=== PATIENT | female | born 1960 | race Caucasian/White ===

== ENCOUNTER → 2024-05-16 13:12 | Outpatient (CLI) | payer MEDICARE, OTHER, SELFPAY ==
--- NOTE | 2024-05-16 13:18 | DI.MG.S_ITS ---
BILATERAL DIGITAL SCREENING MAMMOGRAM 3D/2D WITH CAD: 05/16/2024 CLINICAL: Baseline exam. Routine screening. No prior exams were available for comparison. Both breasts are heterogeneously dense, which may obscure small masses (category c / 51-75% glandular tissue). Current study was also evaluated with a Computer Aided Detection (CAD) system. There is a lymph node in the right breast posterior depth superior region seen on the mediolateral oblique view only. There is a lymph node in the left breast posterior depth superior region seen on the mediolateral oblique view only. No other significant masses or calcifications are seen in either breast. IMPRESSION: INCOMPLETE: NEEDS ADDITIONAL IMAGING EVALUATION The lymph node in the right breast posterior depth superior region seen on the mediolateral oblique view only is indeterminate. An ultrasound is recommended. The lymph node in the left breast posterior depth superior region seen on the mediolateral oblique view only is indeterminate. An ultrasound is recommended. These appear borderline enlarged on mammogram. Based on the Tyrer Cuzick model (a risk assessment model) the patient's lifetime risk is 4.9% and her 10 year risk is 2.4%. According to the ACR, ACS, and NCCN guidelines, an annual breast MRI exam along with mammogram is recommended if the patient's lifetime risk is 20% or greater. This exam was interpreted at Station ID: [id number]. NOTE: For mammograms, a report in lay terms will be sent to the patient. Approximately 15% of breast malignancies will not be visualized mammographically. In the management of a palpable breast mass, a negative mammogram must not discourage biopsy of a clinically suspicious lesion. Electronically Signed By: Marvin Hunt M.D. lc/:05/16/2024 15:05:19 letter sent: Additional Imaging Needed ACR BI-RADS Category 0: Incomplete 3340F
== END ==
PROVIDERS: PCP Family Medicine; Referring Provider Family Medicine; Visit Provider Family Medicine
DX: Z12.31 Encounter for screening mammogram for malignant neoplasm of breast (principal); R92.333 Mammographic heterogeneous density, bilateral breasts
CPT/HCPCS: 77063; 77067

== ENCOUNTER → 2024-06-27 10:03 | Outpatient (CLI) | payer MEDICARE, OTHER, SELFPAY ==
--- NOTE | 2024-06-27 10:04 | DI.US.S_ITS ---
LIMITED ULTRASOUND OF LEFT BREAST: 06/27/2024 CLINICAL: Patient returns today to evaluate a focal asymmetry in the left breast. Comparison is made to exam dated: 05/16/2024 mammogram - . Color flow and real-time ultrasound of the left breast upper aspect were performed. Hernandez scale images of the real-time examination were reviewed. There is a benign 2.8 cm lymph node in the left axillary tail. Thie hilum is fatty and the cortex is very thin. There is an incidental intramammary lymph node measuring 0.4 cm at 2:00 posterior depth. IMPRESSION: BENIGN There is no sonographic evidence of malignancy. The 2.8 cm lymph node which corresponds to the mammogram appears benign. Return to annual mammogram screening schedule is recommended. Findings and recommendations were conveyed to the patient at time of exam. This exam was interpreted at Station ID: [id number]. Electronically Signed By: Wendy moffett/:06/27/2024 12:17:57 letter sent: Normal Exam Ultrasound BI-RADS: 2 Benign
--- NOTE | 2024-06-27 10:05 | DI.US.S_ITS ---
LIMITED ULTRASOUND OF RIGHT BREAST: 06/27/2024 CLINICAL: Patient returns today to evaluate a focal asymmetry in the right breast. Comparison is made to exam dated: 05/16/2024 mammogram - [facility]. Real-time ultrasound of the right breast upper aspect was performed. Hernandez scale images of the real-time examination were reviewed. There is a benign 1.4 cm lymph node in the right axillary tail. This lymph node displays fatty hilum. The cortex is largely thin, and measures up to 0.38 cm in greatest diameter. This correlates with mammography findings. IMPRESSION: BENIGN There is no sonographic evidence of malignancy. The 1.4 cm lymph node appears benign. Return to annual mammogram screening schedule is recommended. Findings and recommendations were conveyed to the patient at time of exam. This exam was interpreted at Station ID: [id number]. Electronically Signed By: Wendy moffett/:06/27/2024 12:20:05 letter sent: Normal Exam Ultrasound BI-RADS: 2 Benign
== END ==
PROVIDERS: PCP Family Medicine; Referring Provider Family Medicine; Visit Provider Family Medicine
DX: R92.8 Other abnormal and inconclusive findings on diagnostic imaging of breast (principal); R59.0 Localized enlarged lymph nodes
CPT/HCPCS: 76642